=== PATIENT | male | born 1980 | race Caucasian/White ===

== ENCOUNTER 2022-01-09 14:19 | Emergency (ER) | payer OTHER ==
[~2022-01-09] VITALS: Ht 170.2 cm; Wt 87.8 kg
[2022-01-09] MEDS ORDERED: ACETAMINOPHEN TAB 650MG DOSE (2X325MG) PO ONE (16:40)
[2022-01-09] MEDS ORDERED: MUCI600T31 PO (16:59)
[2022-01-09] MEDS ORDERED: BENZ200C70 PO (16:59)
[2022-01-09 17:14] VITALS: BP 125/62
== END 2022-01-09 17:20 | disposition home or self-care (01) ==
LOC: M ED 14:19
DX: J06.9 Acute upper respiratory infection, unspecified (principal); B34.9 Viral infection, unspecified